=== PATIENT | female | born 1955 | race Caucasian/White ===

== ENCOUNTER 2021-12-12 11:17 | Outpatient (CLI) | payer MEDICARE, SELFPAY ==
--- NOTE | 2021-12-12 11:29 | MM_ITS ---
WS: [id number] BILATERAL SCREENING DIGITAL TOMOSYNTHESIS MAMMOGRAM WITH CAD HISTORY: SCREENING COMPARISON: 04/30/2018, 11/28/2016 Bilateral CC and MLO views with tomosynthesis and synthetic mammography submitted. Computer aided det ection analyzed. Breast composition: There are scattered areas of fibroglandular density. No suspicious masses, microc alcifications or architectural distortion. Bilateral scattered asymmetries are stable. MM/[place] [id number] IMPRESSION: BI-RADS: 2-Benign FOLLOW UP: 1 Year Follow-up
== END 2021-12-12 11:18 | disposition home or self-care (01) ==
LOC: RAD 11:19
PROVIDERS: PCP Family Medicine; Visit Provider Family Medicine
DX: Z12.31 Encounter for screening mammogram for malignant neoplasm of breast (principal)
CPT/HCPCS: 77063; 77067

== ENCOUNTER 2022-06-23 19:40 | Inpatient (IN) | payer MEDICARE, SELFPAY ==
[2022-06-23 19:42] VITALS: BP 134/79; PULSE 104; RESP 18; TEMP 37; O2SAT 99; BMI 33.0
--- NOTE | 2022-06-23 20:04 | CTR_ITS ---
PROCEDURE INFORMATION: Exam: CTA Chest With Contrast Exam date and time: 06/23/2022 9:06 PM Age: 67 years old Clinical indication: Fever and shortness of breath; Patient HX: SOB with fever. Positive home covid test. ; Additional info: Shortness of breath, recent covid diagnosis TECHNIQUE: Imaging protocol: Computed tomographic angiography of the chest with contrast. 3D rendering (Not supervised by radiologist): MIP and/or 3D reconstructed images were created by the technologist. Radiation optimization: All CT scans at this facility use at least one of these dose optimization techniques: automated exposure control; mA and/or kV adjustment per patient size (includes targeted exams where dose is matched to clinical indication); or iterative reconstruction. Contrast material: OMNI 350; Contrast volume: 82 ml; Contrast route: INTRAVENOUS (IV); Other protocol: This patient has received 0 known CTs and 0 known cardiac nuclear medicine studies in the 12 months prior to the current study. COMPARISON: No relevant prior studies available. RADIATION DOSE METRICS: Total DLP (mGy-cm): 405.61 FINDINGS: Pulmonary arteries: Normal. No pulmonary emboli. Aorta: Unremarkable. No aortic aneurysm. No aortic dissection. Lungs: Patchy bilateral right greater than left airspace infiltrates. Pleural spaces: Unremarkable. No pneumothorax. No pleural effusion. Heart: Unremarkable. No cardiomegaly. No pericardial effusion. Lymph nodes: Scattered prominent subcentimeter short axis mediastinal lymph nodes, nonspecific. Scattered prominent subcentimeter short axis mediastinal lymph nodes, nonspecific. 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 Soft tissues: Unremarkable. CT/CT angio chest PE protcl [id number] IMPRESSION: 1. Negative for pulmonary embolus. 2. Scattered prominent subcentimeter short axis mediastinal lymph nodes, nonspecific. 3. 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 4. Scattered prominent subcentimeter short axis mediastinal lymph nodes, nonspecific. 5. Patchy bilateral right greater than left airspace infiltrates.
--- NOTE | 2022-06-23 20:09 | W.ED.SOB ---
HPI - SOB/Dyspnea General: Chief Complaint: Shortness of Breath/Dyspnea Stated Complaint: SOB, Covid + Time Seen by Provider: 06/23/22 19:50 History of Present Illness: HPI Narrative: This 67-year-old female presents to the ER for evaluation of worsening shortness of breath. She was positive to home COVID test on 06/16/2022 (7 days ago). Since then, symptoms have persisted and now she has dizziness and vertigo that is so severe that she finds it hard to stand and walk. This has been going on for the last 4 to 5 days. Today, she started having off-and-on temperature with Tmax of 100.7. Also, she developed shortness of breath earlier this afternoon, prompting her to come in for evaluation. She continues to cough which gives her upper abdominal pain. Patient is hypoxic on room air and is currently on 2 L via nasal cannula to maintain her oxygen in the mid 90s. Associated symptoms: Reports fever(s) and lightheadedness Review of Systems Const: Reports: fever(s) and body aches Eyes: Denies: change in vision or eye discharge ENMT: Denies: throat pain, dental pain or nasal discharge Card: Reports: lightheadedness and other (Vertigo) Resp: Reports: dyspnea and non-productive cough : Denies: dysuria Musc: Denies: neck pain or back pain Psych: Denies: depression René/Lymph: Denies: easy bruising All/Imm: Denies: urticaria, tongue swelling or facial swelling Physical Exam Const: COMMON NORMALS: no acute distress, patient oriented x3, no limitations and alert HENMT: COMMON NORMALS: normocephalic HEAD & SCALP: normocephalic Eye: COMMON NORMALS: EOMs intact bilaterally Neck/C-Spine: COMMON NORMALS: full ROM and supple Chest: COMMONS NORMALS: normal inspection of the chest Resp: COMMON NORMALS: normal respiratory effort, No retractions, No use of accessory muscles and clear to auscultation bilaterally AUSCULTATION: clear to auscultation bilaterally OTHER: Currently on 2 L of oxygen via nasal cannula Cardio: COMMON NORMALS: regular rate, regular rhythm and No murmurs present (Cardio) RATE: regular rate RHYTHM: regular rhythm GI: COMMON NORMALS: Normal to inspection, nondistended, normoactive bowel sounds present and non-tender : COMMON NORMALS: Yes no CVA tenderness BLADDER/KIDNEY EXAM: Yes no CVA tenderness Back/Pelvis: COMMON NORMALS: no CVA tenderness and no thoracic nor lumbar tenderness Extremity: GENERAL: Yes normal exam except as noted Neuro: COMMON NORMALS: patient oriented x3 and no focal motor deficits SENSORIUM/ORIENTATION: Yes alert Psych: COMMON NORMALS: mental status grossly normal and cooperative Course Vital Signs: Vital signs: Vital Signs Temperature 98.6 F 06/23/22 19:42 Pulse Rate 104 H 06/23/22 19:42 Respiratory Rate 18 06/23/22 19:42 Blood Pressure 134/79 06/23/22 19:42 Pulse Oximetry 99 06/23/22 19:42 Oxygen Delivery Me thod 06/23/22 19:42 Oxygen Flow Rate 2 06/23/22 19:42 MDM - SOB/Dyspnea Medical Decision Making Medical decision making: This 67-year-old female with a history of COVID-19 infection presents to the ER with shortness of breath, hypoxia, dizziness and vertigo. On room air, oxygen saturation dropped to 86 to 88%. Patient was put on 2 L to maintain her oxygen saturation in the mid 90s. With concerns for pulmonary embolism, CTA chest was obtained. It is negative for PE but reveals bibasilar infiltrates. Given that she is needing oxygen, she will be admitted for further management. Case discussed with hospitalist on-call who accepted patient for admission. Lab Data 06/23/22 20:24 06/23/22 20:24 Labs/Radiology: Radiology Impressions Chest CTA 06/23/22 20:04 IMPRESSION: 1. Negative for pulmonary embolus. 2. Scattered prominent subcentimeter short axis mediastinal lymph nodes, nonspecific. 3. 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 4. Scattered prominent subcentimeter short axis mediastinal lymph nodes, nonspecific. 5. Patchy bilateral right greater than left airspace infiltrates. Laboratory Results WBC 5.6 10^3/uL (4.0-10.0) 06/23/22 20:24 RBC 4.99 10^6/uL (4.1-5.3) 06/23/22 20:24 Hgb 15.0 g/dL (11.5-15.3) 06/23/22 20:24 Hct 45.7 % (37.0-47.0) 06/23/22 20: MCV 91.6 fl (81-99) 06/23/22: MCH 30.1 pg (28.0-34.0) 06/23/22: MCHC 32.8 g/dL (30.0-36.0) 06/23/22: RDW 13.1 % (12.1-15.1) 06/23/22: Plt Count 147 10^3/cmm (130-400) 06/23/22: MPV 10.6 fL (7.4-10.4) H 06/23/22: Neut % (Auto) 76.9 % 06/23/22: Lymph % (Auto) 16.7 % 06/23/22: Valley % (Auto) 4.7 % 06/23/22: Eos % (Auto) 1.3 % 06/23/22: Baso % (Auto) 0.2 % 06/23/22: Neut # (Auto) 4.28 10^3/uL (1.8-7.7) 06/23/22: Lymph # (Auto) 0.9 10^3/uL (0.8-4.8) 06/23/22: Valley # (Auto) 0.3 10^3/uL (0.2-0.9) 06/23/22: Eos # (Auto) 0.1 10^3/uL (0.0-0.8) 06/23/22: Baso # (Auto) 0.0 10^3/uL (0.0-0.1) 06/23/22: Nucleated RBC % (auto) 0 % 06/23/22: Nucleated RBCs # 0.0 /100WBC 06/23/22 20: Sodium 139 mmol/L (136-145) 06/23/22 20: Potassium 4.3 mmol/L (3.5-5.1) 06/23/22 20: Chloride 104 mmol/L (98-107) 06/23/22: Carbon Dioxide 23 mmol/L (22-29) 02/20/23 20:24 Anion Gap 16.3 (5-19) 06/23/22 20:24 BUN 11 mg/dL (8-23) 06/23/22 20:24 Creatinine 0.7 mg/dL (0.5-0.9) 06/23/22 20:24 GFR Calculation 83.2 mL/min (90-130) L 06/23/22 20:24 Glucose 147 mg/dL (65-115) H 06/23/22 20:24 Calculated Osmolality 290 mOsm/kg (285-295) 06/23/22 20:24 Calcium 8.8 mg/dL (8.5-10.5) 06/23/22 20:24 Total Bilirubin 0.3 mg/dL (0.15-1.2) 06/23/22 20:24 AST 26 U/L (0-32) 06/23/22 20:24 ALT 13 U/L (0-33) 06/23/22 20:24 Alkaline Phosphatase 96 U/L (35-105) 06/23/22 20:24 Troponin T Gen 5 ng/L 7 ng/L (0-10) 06/23/22 20:24 Total Protein 6.3 g/dL (6.6-8.7) L 06/23/22 20:24 Albumin 3.7 g/dL (3.5-5.2) 06/23/22 20:24 Globulin 2.6 g/dL (1.3-4.6) 06/23/22 20:24 Discharge Plan Discharge Condition: Stable Referrals: Matias Russell MD [Primary Care Provider] - Coding Level of Care Code ED Director Of Staff Development for Kiang Radha
[2022-06-23 20:39] LABS: Basophils % 0.2 %; Eosinophils # 0.1 10^3/uL (0.0-0.8); Eosinophils % 1.3 %; Hematocrit 45.7 % (37.0-47.0); Lymphocytes # 0.9 10^3/uL (0.8-4.8); Lymphocytes % 16.7 %; Mean Corpuscular HGB Conc 32.8 g/dL (30.0-36.0); Mean Corpuscular Hemoglobin 30.1 pg (28.0-34.0); Mean Corpuscular Volume 91.6 fl (81-99); Mean Platelet Volume 10.6 fL (7.4-10.4); Monocytes # 0.3 10^3/uL (0.2-0.9); Monocytes % 4.7 %; Neutrophils # 4.28 10^3/uL (1.8-7.7); Neutrophils % 76.9 %; Nucleated Red Blood Cells % 0 %; Platelet Count 147 10^3/cmm (130-400); Red Blood Count 4.99 10^6/uL (4.1-5.3); Red Cell Distribution Width 13.1 % (12.1-15.1); White Blood Count 5.6 10^3/uL (4.0-10.0)
[2022-06-23 20:51] LABS: Troponin T (5th) Once 7 ng/L (0-10)
[2022-06-23 20:53] LABS: Alanine Aminotransferase 13 U/L (0-33); Albumin Level 3.7 g/dL (3.5-5.2); Alkaline Phosphatase 96 U/L (35-105); Aspartate Amino Transferase 26 U/L (0-32); Blood Urea Nitrogen 11 mg/dL (8-23); Calcium 8.8 mg/dL (8.5-10.5); Carbon Dioxide 23 mmol/L (22-29); Chloride 104 mmol/L (98-107); Globulin 2.6 g/dL (1.3-4.6); Glomerular Filtration Rate 83.2 mL/min (90-130); Glucose 147 mg/dL (65-115); Osmolality Calculated 290 mOsm/kg (285-295); Sodium 139 mmol/L (136-145); Total Bilirubin 0.3 mg/dL (0.15-1.2); Total Protein 6.3 g/dL (6.6-8.7)
[2022-06-23 21:07] LABS: Anion Gap 16.3 (5-19); Potassium 4.3 mmol/L (3.5-5.1)
[2022-06-23] MEDS: meclizine 25 mg tablet 50 MG PO (23:13)
[2022-06-23] MEDS: dexamethasone 10 mg/mL INJ 6 MG IVP (23:14)
[2022-06-23] MEDS: levofloxacin-dextrose 5 % 750 MG/150 ML PREMIX 100 MG IV (23:19)
[2022-06-23 23:31] VITALS: BP 130/73; PULSE 84; RESP 16; O2SAT 2
[2022-06-23] MEDS: sodium chloride 0.9% 1,000 ML 75 ML IV (23:55)
[2022-06-24] VITALS (15 sets, daily range): BP systolic 103–136; BP diastolic 68–85; PULSE 72–115; RESP 12–18; TEMP 36.7–37.2; O2SAT 93–98
[2022-06-24 00:03] LABS: NT Pro B Type Natriuretic Pept 79 pg/mL (0-125); Procalcitonin 0.02 ng/mL (0-0.5); Thyroid Stimulating Hormone 2.71 uIU/mL (0.27-4.20); Vitamin B12 301 pg/mL (232-1245)
[2022-06-24 00:10] LABS: Folate Level 10.2 ng/mL (4.8-37.3)
[2022-06-24 00:14] LABS: Iron 51 ug/dL (37-145)
--- NOTE | 2022-06-24 00:17 | P.HP_ITS ---
Providers/Chief Complaint Primary Care Provider: Matias Russell Chief Complaint: SOB, Covid + History of Present Illness Michelle Fuentes is a 67 year old female with no significant past medical history who tested positive at home for COVID-19 a week ago. As per the patient she has been having symptoms of nausea, myalgias, weakness, cough, slight difficulty in breathing for last 8 to 9 days. Even at home has COVID. Shortness of breath have been getting worse over. Of last 3 days hence she decided to come to the ER today. Symptoms are all associated with dizziness on standing up. Complains of multiple episodes of diarrhea, poor oral intake. In the ER found to be hypoxic down to mid 80s improving to more than 92 on 2 L oxygen supplementation. On examination patient is lying comfortably in bed with family at bedside without any active complaints currently. In the ER has been given IV Levaquin and started on oxygen therapy. Review of Systems General: Reports: 10 or more systems reviewed and unremarkable except in HPI and below Const: Denies: fever(s), chills, body aches, change in appetite, change in weight, malaise, night sweats, diaphoresis, change in sleep pattern, daytime sleepiness or snoring Eyes: Denies: change in vision, blurry vision, photophobia, eye discomfort or eye discharge ENMT: Denies: throat pain, enlarged tonsils, hoarseness, mouth pain, oral sores, dry mouth, tinnitus, nasal congestion or post nasal drip Card: Denies: chest pain, palpitations, irregular heart rhythm, edema, swellin g of feet/ankles, lightheadedness, syncope, pre-syncope, dyspnea on exertion, orthopnea, leg pain with exertion or acrocyanosis Resp: Denies: dyspnea, productive cough, non-productive cough, wheezing, stridor, pain on inspiration, change in phlegm color, hemoptysis or chest congestion GI: Denies: abdominal pain, nausea, vomiting, hematemesis, coffee ground emesis, dysphagia, heartburn, diarrhea, constipation, bloating, GI cramping, change in bowel habits, pain on defecation, hematochezia or melena : Denies: flank pain, dysuria, urinary frequency, urinary urgency, urinary hesitancy, nocturia or hematuria Musc: Denies: neck pain, back pain, extremity pain, joint pain, joint swelling, joint redness, joint stiffness or limited range of motion Neuro: Denies: headache(s), numbness in extremities, weakness in extremities, sensory changes, lack of coordination, difficulty walking, frequent falls, dizziness, vertigo, confusion, Slurred speech present, difficulty communicating thoughts or seizure-like activity Psych: Denies: anxiety, depression, mood swings, panic attacks, hopelessness or irritability Endo: Denies: polyuria, polydipsia, tired all the time, cold intolerance, excessive sweating, flushing or heat intolerance René/Lymph: Denies: easy bruising or easy bleeding All/Imm: Denies: tongue swelling, facial swelling or acute wheezing Medications/Allergies Allergies Allergy/AdvReac Type Severity Reaction Status Date / Time benzonatate Allergy Mild ADR-Anxiety Verified 06/24/22 00:17 tramadol Allergy ADR-Dizzine Verified 06/23/22 19:49 ss PFSH Acute PFSH: Medical History (Updated 06/24/22 @ 00:26 by Bakari Abdullahi MD) Skin cancer Surgical History (Updated 06/24/22 @ 00:26 by Bakari Abdullahi MD) History of colonoscopy Hx of cholecystectomy Family History (Updated 06/24/22 @ 00:26 by Bakari Abdullahi MD) Other Diabetes Denies family history of Clotting disorder Social History (Updated 06/24/22 @ 00:26 by Bakari Abdullahi MD) Smoking and tobacco status: never smoked Alcohol intake: never Substance/Drug Use: never Caregiver/support person: Yes Lives independently: Yes Household members: spouse Housing: House Marital status: Vitals/I&O/Wt Last Vital Signs Temp 98.6 F 06/23/22 19:42 Pulse 84 06/23/22 23:31 Resp 16 06/23/22 23:31 BP 130/73 06/23/22 23:31 Pulse Ox 2 L 06/23/22 23:31 O2 Del Method 06/23/22 23:31 O2 Flow Rate 2 06/23/22 19:42 Weight last 48 hrs Weight 79.379 kg Physical Exam Narrative: General: No acute distress, AO x3 on 2 to 3 L of oxygen supplementation HEENT: PERRLA, pupils bilaterally equal and reactive Chest: Normal vesicular breath sounds,, occasional rhonchi all over the lung cabrera with coarse crackles present in right mid and lower zone CVS: S1-S2 regular, no murmurs, no tachycardia, no gallops, no rubs Abdomen: Soft, nontender, no organomegaly, bowel sounds present Neuro: No focal deficits, no facial deformity, AO x3, power 5/5 in all limbs Data 06/23/22 20:24 06/23/22 20:24 Micro: Microbiology 06/23/22 23:14 Blood Culture - Preliminary Blood SPECIMEN COLLECTED 06/23/22 23:16 Blood Culture - Preliminary Blood SPECIMEN COLLECTED A&P Assessment and plan (1) Hypoxia: (2) Pneumonia due to COVID-19 virus: (3) Dizziness: (4) Diarrhea: Plan 67-year-old female with no significant past medical history who tested positive at home for COVID-19 around a week ago presented to the ER because of vertigo, difficulty in breathing, hypoxia which has been getting worse for last 2 to 3 days along with diarrhea and poor oral intake. Hypoxia secondary to COVID-19 pneumonia: Mild to moderate disease. High concerns for superimposed bacterial infection Oxygen supplementation keeping saturation over 88%. Dexamethasone 6 mg daily. Remdesivir to finish a 5-day course. Vitamin C, zinc. DuoNeb every 6 hour, budesonide twice daily Pulmonary toilet with incentive spirometry flutter valve. We will monitor inflammatory markers including CRP, D-dimer every 48 hours. If getting elevated will dose Actemra. Patient was made aware of the same and he has given verbal consent. CT done in ER negative for pulmonary embolism. Check sputum culture, MRSA swab, procalcitonin, urine Legionella, bacterial antigen, blood culture. For now start patient on antibiotics for community-acquired pneumonia with IV ceftriaxone and oral azithromycin. If MRSA swab is positive or if patient is not improving can add vancomycin. Given hypoxia will try to keep patient as negative as possible. Currently patient is slightly dehydrated. Start on normal saline at 75 cc/h while monitoring for fluid overload. Strict input output charting, daily weights. Diarrhea: Check stool studies. Most likely in setting of viral illness. IV fluid as above. If if negative can add loperamide. Dizziness: Most likely in setting of dehydration along with viral prodrome in setting of COVID-19 and diarrhea. IV fluids as above. Meclizine 25 mg every 8 as needed. Full code. Patient's granddaughter will be the DPOA. Lovenox for DVT prophylaxis Protonix for PUD prophylaxis Regular diet Attestations Medical Necessity Statement*: Admission for more than 2 midnights for management of hypoxia in setting of COVID-19 with high concern for superimposed bacterial infection, diarrhea and dizziness secondary to dehydration and Moderate Time for a total of 60 minutes, includes reviewing past or interval history, examining/interviewing patient, placing orders, counseling patient/family/other support, updating patient/family/other support, discussing plan of care with staff, communicating with other healthcare providers, documenting encounter and coordinating care Diagnoses Hypoxia R09.02 Pneumonia due to COVID-19 virus U07.1; J12.82 Dizziness R42 Diarrhea R19.7
[2022-06-24 00:44] LABS: Percent Saturation 16.3 % (20-50); Total Iron Binding Capacity 312 mcg/dl; Unsaturated Iron Binding 261 ug/dL (112-347)
[2022-06-24 00:49] LABS: Erythrocyte Sedimentation Rate 32 mm/hr (0-15)
[2022-06-24 01:01] LABS: Lactic Sepsis W/Reflex 1.8 mmol/L (0.5-2.2)
[2022-06-24 01:26] LABS: D Dimer 1.01 ug/mIFEU (0-0.59)
[2022-06-24] MEDS: remdesivir 200 MG in sodium chloride 0.9% (100 ml) 60 ML 100 MG IV (01:35)
--- NOTE | 2022-06-24 02:46 | PC.PHAR ---
Pharmacokinetic dosing service Date: 06/24/22 Time: 245 Objective: Patient: Michelle Fuentes Floor: 259-1 Age: 67 yo Serum creatinine: 0.7 mg/dL Height: 61.0 Inches Weight (kg): 79.379 Diagnosis: Relevant medical/social history: Cultures and sensitivities: Other labs: Assessment: IBW (kg): 47.80 Dosing wt(kg): 79.379 Estimated Creatinine clearance (ml/min): 58.0 CRCL method: Cockcroft and Gault using ibw(default). Drug selected: Vancomycin Loading dose (mg): 0 Vd (liters): 71.4 (factor used: 0.9 L/kg) Rajesh (hr-1): 0.053 Half life (hrs): 13.08 Recommended dose: 1500 mg Interval: 18 hrs Infusion time (hrs): 1.5 Predicted peak (mcg/mL): 32.8 Predicted trough (mcg/mL): 13.68 Total body weight is being used for vancomycin dosing. Renal function is stable [ ] /unstable [ ] Recommendations: Give Vancomycin 1500 mg q 18 hrs with an expected Cpeak of 32.8 mcg/ml and an expected Ctrough of 13.68 mcg/ml Renal dosing of other antibiotics (review renal dosing of other medications and list guidelines here): Thank you for the consult, will continue to follow. Signature: Carlie Olivarez [facility]
[2022-06-24] MEDS: vancomycin 1,500 MG/300 ML PIGGYBACK 150 MG IV (03:03)
[2022-06-24] MEDS: ascorbic acid 500 mg Tablet PO ×3 (03:03→17:18)
[2022-06-24] MEDS: enoxaparin 40 mg/0.4 mL Syringe SUBCUT (03:03)
[2022-06-24 05:07] LABS: Add Urine Microscopic? NO; Charge for UA Resulting for Rev
[2022-06-24 05:09] LABS: Specific Gravity, Urine 1.005 (1.005-1.030); Urine Appearance Clear (CLEAR); Urine Color Yellow (Yellow); pH Urine 5 (5-7)
[2022-06-24 05:10] LABS: Bilirubin Urine Neg (Negative); Blood Urine Neg (Negative); Glucose Urine UA Norm (Normal); Ketones Urine Negative (Negative); Leukocyte Esterase Urine Negative (Negative); Nitrate Urine Negative (Negative); Protein Urine Neg (Negative); Urobilinogen Urine Norm (Negative)
[2022-06-24 05:25] LABS: Hematocrit 41.8 % (37.0-47.0); Hemoglobin 13.7 g/dL (11.5-15.3); Lymphocytes # 0.8 10^3/uL (0.8-4.8); Lymphocytes % 18.1 %; Mean Corpuscular HGB Conc 32.8 g/dL (30.0-36.0); Mean Corpuscular Hemoglobin 29.8 pg (28.0-34.0); Mean Corpuscular Volume 90.9 fl (81-99); Mean Platelet Volume 10.8 fL (7.4-10.4); Monocytes # 0.1 10^3/uL (0.2-0.9); Monocytes % 2.2 %; Neutrophils # 3.55 10^3/uL (1.8-7.7); Neutrophils % 79.3 %; Nucleated Red Blood Cells % 0 %; Platelet Count 145 10^3/cmm (130-400); White Blood Count 4.5 10^3/uL (4.0-10.0)
[2022-06-24] MEDS: piperacillin-tazobactam 3.375 GM in sodium chloride 0.9% (plus) 50 ML IV ×3 (05:35→22:21)
[2022-06-24 05:40] LABS: D Dimer 1.47 ug/mIFEU (0-0.59)
[2022-06-24 05:54] LABS: Alanine Aminotransferase 13 U/L (0-33); Albumin Level 3.2 g/dL (3.5-5.2); Alkaline Phosphatase 86 U/L (35-105); Blood Urea Nitrogen 15 mg/dL (8-23); C Reactive Protein 26.5 mg/L (0.0-4.9); Calcium 8.7 mg/dL (8.5-10.5); Carbon Dioxide 19 mmol/L (22-29); Chloride 106 mmol/L (98-107); Chol HDL Ratio 2.11 mg/dL (0.0-4.40); Cholesterol 97 mg/dL (0-200); Globulin 3.5 g/dL (1.3-4.6); Glomerular Filtration Rate 83.2 mL/min (90-130); Glucose 195 mg/dL (65-115); HDL Cholesterol 46 mg/dL (60-100); LDL Cholesterol Calculated 39 mg/dL (50-129); Osmolality Calculated 288 mOsm/kg (285-295); Sodium 136 mmol/L (136-145); Total Bilirubin 0.2 mg/dL (0.15-1.2); Total Protein 6.7 g/dL (6.6-8.7); Triglycerides 58 mg/dL (0-150); VLDL Cholestrol Calculation 12 mg/dL (0-30)
[2022-06-24 05:55] LABS: Anion Gap 15.8 (5-19)
[2022-06-24 05:56] LABS: Aspartate Amino Transferase 28 U/L (0-32); Potassium 4.8 mmol/L (3.5-5.1)
--- NOTE | 2022-06-24 06:00 | XRR_ITS ---
PROCEDURE INFORMATION: Exam: XR Chest Exam date and time: 06/24/2022 6:10 AM Age: 67 years old Clinical indication: Condition or disease; Other: Covid TECHNIQUE: Imaging protocol: Radiologic exam of the chest. Views: 1 view. COMPARISON: CT angio chest PE protcl [id number] 06/23/2022 9:06 PM FINDINGS: Lungs: Low lung volumes. There is increased interstitial markings and haziness of the lungs, which in the setting of cardiomegaly is suggestive of pulmonary congestion. Pneumonia should be excluded clinically. Pleural spaces: Unremarkable. No pleural effusion. No pneumothorax. Heart/Mediastinum: Stable cardiomediastinal silhouette. Bones/joints: Unremarkable. XR/XR chest 1V portable [id number] IMPRESSION: Imaging findings suggestive of pulmonary congestion. Pneumonia should be excluded clinically.
[2022-06-24 06:05] LABS: Estmated Average Glucose 103; Hemoglobin A1C 5.2 % (4.0-6.0)
[2022-06-24] MEDS: budesonide 0.5 mg/2 mL Neb INHALATION (08:55)
[2022-06-24] MEDS: albuterol 2.5 mg/3 mL Neb INHALATION ×2 (08:58→14:10)
[2022-06-24] MEDS: ipratropium 0.5 mg/2.5 mL Neb INHALATION ×2 (08:58→14:10)
[2022-06-24] MEDS: ferrous gluconate 324 mg Tablet PO ×2 (09:43→17:18)
[2022-06-24] MEDS: pantoprazole DR 40 mg Tablet PO (09:43)
[2022-06-24] MEDS: cyanocobalamin 1,000 mcg Tablet 500 MCG PO (09:43)
[2022-06-24] MEDS: zinc gluconate 50 mg Tablet PO (09:43)
[2022-06-24] MEDS: acetaminophen 325 mg Tablet 650 MG PO (11:13)
--- NOTE | 2022-06-24 12:28 | P.PN_ITS ---
Subjective Subjective: Patient is doing well on 2 L Complaining of fatigue lethargy and vertigo We will discontinue isolation by tomorrow as her symptoms started on 15 June Vitals/I&O/Wt Last Vital Signs Temp 98.2 F 06/24/22 11:35 Pulse 115 H 06/24/22 11:35 Resp 18 06/24/22 11:35 BP 125/85 06/24/22 11:35 Pulse Ox 98 06/24/22 11:35 O2 Del Method 06/24/22 11:35 O2 Flow Rate 1 06/24/22 11:35 06/23/22 06/24/22 06/24/22 22:59 06:59 14:59 Intake Total 1025 / 1025 170 / 170 Output Total 500 / 500 Balance 525 / 525 170 / 170 Weight last 48 hrs Weight 82.146 kg Weight 79.379 kg Physical Exam Narrative: Awake and alert Fatigued and lethargic Pleasant and cooperative Nonfocal neuro exam S1, S2 No audible stridor or wheezing Currently on 2 L Abdomen soft Able to follow commands Family at the bedside Data 06/24/22 05:07 06/24/22 05:07 Micro: Microbiology 06/23/22 23:14 Blood Culture - Preliminary Blood SPECIMEN COLLECTED 06/23/22 23:16 Blood Culture - Preliminary Blood SPECIMEN COLLECTED A&P Assessment and plan (1) Diarrhea: (2) Dizziness: (3) Hypoxia: (4) COVID-19 virus infection: (5) Pneumonia due to COVID-19 virus: Plan Concern for superimposed bacterial infection with underlying COVID-19 infection Currently she is on 2 L Acute hypoxia on 2 L Complaining of vertigo Orthostatic as well Continue IV fluids and antibiotics We will discontinue isolation by tomorrow as she will be finishing 10 days of her symptoms is also sick with COVID-19 but not severely sick Continue Decadron and remdesivir Granddaughter is her DPOA DVT prophylaxis on board Full code Attestations Medical Necessity Statement*: Continue medical management and Moderate Time (35) for a total of 35 minutes, includes reviewing past or interval history, examining/interviewing patient, placing orders, counseling patient/family/other support, updating patient/family/other support, discussing plan of care with staff, communicating with other healthcare providers, documenting encounter and coordinating care Diagnoses Diarrhea R19.7 Dizziness R42 Hypoxia R09.02 COVID-19 virus infection U07.1 Pneumonia due to COVID-19 virus U07.1; J12.82
--- NOTE | 2022-06-24 14:41 | ECG_ITS ---
[facility] Test Date: 2022-06-24 Pat Name: Michelle Fuentes Department: Room: 257 Gender: Female Permit Technician: : 1955 Requested By: Leyla Lyons Order Number: [id number] Star MD: Jason Handy M.D. Measurements Intervals [place] Rate: 110 P: 12 FL: 138 QRS: 30 QRSD: 97 T: -20 QT: 301 QTc: 408 Interpretive Statements SINUS TACHYCARDIA INCOMPLETE RIGHT BUNDLE BRANCH BLOCK [90+ ms QRS DURATION, TERMINAL R IN V1/V2, 40+ ms S IN I/aVL/V4/V5/V6] MINIMAL VOLTAGE CRITERIA FOR LVH, CONSIDER NORMAL VARIANT [MEETS CRITERIA IN ONE OF: R(aVL), S(V1), R(V5), R(V5/V6)+S(V1)] ST DEVIATION AND MODERATE T-WAVE ABNORMALITY, CONSIDER ANTERIOR ISCHEMIA [-0.1+ mV T-WAVE IN V3/V4] Compared to ECG 06/24/2022 14:45:01 No significant changes Electronically Signed On 06-24-2022 17:33:07 ORTHOTIST OR PROSTHETIST by Jason Handy M.D. [id number]
--- NOTE | 2022-06-24 14:45 | ECG_ITS ---
[facility] Test Date: 2022-06-24 Pat Name: Michelle Fuentes Department: Room: 259 Gender: Female It Application Architect: : 1955 Requested By: Leyla Lyons Order Number: [id number] Star MD: Jason Handy M.D. Measurements Intervals [place] Rate: 125 P: 20 [place]: 166 QRS: 16 QRSD: 91 T: -27 QT: 288 QTc: 416 Interpretive Statements SINUS TACHYCARDIA INCOMPLETE RIGHT BUNDLE BRANCH BLOCK [90+ ms QRS DURATION, TERMINAL R IN V1/V2, 40+ ms S IN I/aVL/V4/V5/V6] MODERATE VOLTAGE CRITERIA FOR LVH, CONSIDER NORMAL VARIANT [MEETS CRITERIA IN ONE OF: R(aVL), S(V1), R(V5), R(V5/V6)+S(V1)] ST DEVIATION AND MODERATE T-WAVE ABNORMALITY, CONSIDER ANTEROLATERAL ISCHEMIA [-0.1+ mV T-WAVE IN V3-V6] ST DEVIATION AND MODERATE T-WAVE ABNORMALITY, CONSIDER INFERIOR ISCHEMIA [-0.1+ mV T-WAVE IN II/aVF] No previous ECG available for comparison Electronically Signed On 06-24-2022 17:33:34 ORACLE TECHNICAL ARCHITECT by Jason Handy M.D. [id number]
[2022-06-24] MEDS: dilTIAZem 5 mg/mL SDV 5 mL IVP (14:48)
[2022-06-24] MEDS: morphine 4 mg/mL SDV 1 mL 2 MG IVP (14:49)
--- NOTE | 2022-06-24 15:14 | W.PM.EVENTAC ---
Event Notes Attestations Time Spent in Patient Care: Patient started experiencing tachycardia and chest pain, CTA has not shown any PE Requested EKG which showed ST depressions V4 to V6 however it is also showing incomplete right bundle branch block Chest pain improved after she was given Cardizem 5 mg IV push which improved her sinus tachycardia I have requested serial troponin and EKGs It is very hard to get blood drawn from her veins will request midline I will start her on therapeutic Lovenox Request stress test for the morning
[2022-06-24] MEDS: enoxaparin 80 mg/0.8 mL Syringe SUBCUT (15:44)
--- NOTE | 2022-06-24 16:41 | ECG_ITS ---
[facility] Test Date: 2022-06-24 Pat Name: Michelle Fuentes Department: Room: 257 Gender: Female Power Shovel Operator Helper: : 1955 Requested By: Leyla Lyons Order Number: [id number] Star MD: Jason Handy M.D. Measurements Intervals [place] Rate: 98 P: 5 TX: 152 QRS: 32 QRSD: 92 T: -12 QT: 376 QTc: 481 Interpretive Statements SINUS RHYTHM POSSIBLE RIGHT VENTRICULAR CONDUCTION DELAY [RSR (QR) IN V1/V2] ST DEVIATION AND MODERATE T-WAVE ABNORMALITY, CONSIDER ANTERIOR ISCHEMIA [-0.1+ mV T-WAVE IN V3/V4] Compared to ECG 06/24/2022 15:09:23 Sinus tachycardia no longer present Incomplete right bundle-branch block no longer present T-wave abnormality still present Possible ischemia still present Electronically Signed On 06-24-2022 17:39:02 BUMP GRADER OPERATOR by Jason Handy M.D. [id number]
--- NOTE | 2022-06-24 19:01 | USCV_ITS ---
Gina Michelle Age: 67 Gender: F : 1955 Exam Date: 06/24/2022 21:46 Ordering Phys: Leyla Lyons MD Technologist: COLE Exam Location: [facility] [place] Indication: COVID isolation. hypoxia 86-88% on room air, dizziness. SOB. No history of cardiac intervention per patient. BP: 136 / 83 HR: 86 Rhythm: Sinus Technical Quality: Adequate MEASUREMENTS (Male / Female) Normal Values 2D ECHO LV Diastolic Diameter PLAX 2.4 cm 4.2 - 5.9 / 3.9 - 5.3 cm LV Systolic Diameter PLAX 1.6 cm IVS Diastolic Thickness 1.8 cm 0.6 - 1.0 / 0.6 - 0.9 cm IVS Systolic Thickness 2.4 cm LVPW Diastolic Thickness 1.5 cm 0.6 - 1.0 / 0.6 - 0.9 cm LVPW Systolic Thickness 1.3 cm LVOT Diameter 2.0 cm LV Ejection Fraction 2D Teich 61.5 % LV Ejection Fraction MOD 2C 53.7 % LV Ejection Fraction 2C AL 55.5 % LA Diameter 1.6 cm LA Width 3.5 cm LA Height 5.1 cm RA Width 2.6 cm RA Height 4.1 cm Aorta at Sinotubular Diameter 2.9 cm IVC Diameter 1.5 cm M-MODE Aortic Annulus Diameter 2.9 cm LA Ao Ratio MM 0.5 MV E Point Septal Separation 0.4 cm DOPPLER AV Peak Velocity 115.0 cm/s LVOT Peak Velocity 96.0 cm/s AV Area Cont Eq vti 2.8 cm squared AV Area Cont Eq pk 2.5 cm squared MV Area PHT 5.0 cm squared Mitral E to A Ratio 0.7 MV E' Velocity 34.5 cm/s Mitral E to MV E' Ratio 13.3 Mitral E to LV E' Lateral Ratio 13.0 Mitral E to LV E' Septal Ratio 13.9 TR Peak Velocity 237.7 cm/s TR Peak Gradient 22.6 mmHg TV Peak E Velocity 46.0 cm/s Right Atrial Pressure 5.0 mmHg Pulmonary Artery Systolic Pressu 27.6 mmHg PV Peak Velocity 104.0 cm/s RV Acceleration Time 0.1 s RV Ejection Time 0.4 s RV AcT/ET 0.2 FINDINGS Left Ventricle Left ventricle is normal in size. LV systolic function is normal with EF of 55 to 60%. No regional wall motion abnormalities are seen. Grade 1 diastolic dysfunction Right Ventricle Normal in size and function Right Atrium Normal in size Left Atrium Normal in size Mitral Valve Structurally normal mitral valve. Aortic Valve Structurally normal aortic valve.No significant aortic stenosis. Moderate aortic regurgitation. Tricuspid Valve Mild tricuspid regurgitation. Pulmonary artery systolic pressure is normal. Pulmonic Valve Not well-visualized. Mild pulmonic regurgitation Pericardium Normal Aorta Normal in size IVC Appears to be normal CONCLUSIONS LV systolic function is normal with EF of 55 to 60% Grade 1 diastolic dysfunction Moderate aortic regurgitation. Mild tricuspid regurgitation Mild pulmonic regurgitation No comparison studies are available Jason Handy MD (Electronically Signed) Final Date: 25 June 2022 10:52 S
[2022-06-24 22:11] LABS: Troponin(5th) Baseline 15 ng/L (0-10)
[2022-06-24] MEDS: sodium chloride 0.9% 1,000 ML 75 ML IV (22:22)
[2022-06-25] VITALS (11 sets, daily range): BP systolic 106–123; BP diastolic 70–80; PULSE 67–95; RESP 16–18; TEMP 36.8–36.9; O2SAT 93–97
[2022-06-25 00:13] LABS: Troponin 5 2HR 16.04 ng/L (0-10)
[2022-06-25 00:23] LABS: Troponin 5 2HR Delta 1.04 ABS# (0-10)
[2022-06-25] MEDS: vancomycin 1,500 MG/300 ML PIGGYBACK 150 MG IV (00:54)
[2022-06-25] MEDS: enoxaparin 80 mg/0.8 mL Syringe SUBCUT ×2 (02:54→15:20)
--- NOTE | 2022-06-25 03:32 | ECG_ITS ---
[facility] Test Date: 2022-06-25 Pat Name: Michelle Fuentes Department: Room: 257 Gender: Female Frame Maker: : 1955 Requested By: Bakari Abdullahi Order Number: [id number] Star MD: Jason Handy M.D. Measurements Intervals [place] Rate: 73 P: 9 UT: 162 QRS: 34 QRSD: 93 T: 24 QT: 402 QTc: 443 Interpretive Statements SINUS RHYTHM POSSIBLE RIGHT VENTRICULAR CONDUCTION DELAY [RSR (QR) IN V1/V2] MODERATE T-WAVE ABNORMALITY, CONSIDER ANTERIOR ISCHEMIA [-0.1+ mV T-WAVE IN V3/V4] Compared to ECG 06/24/2022 17:12:40 No significant changes Electronically Signed On 06-25-2022 10:29:06 HOUSING INSTALLER by Jason Handy M.D. [id number]
[2022-06-25 05:01] LABS: Hematocrit 34.4 % (37.0-47.0); Hemoglobin 11.2 g/dL (11.5-15.3); Lymphocytes # 0.8 10^3/uL (0.8-4.8); Lymphocytes % 15.1 %; Mean Corpuscular HGB Conc 32.6 g/dL (30.0-36.0); Mean Corpuscular Hemoglobin 29.7 pg (28.0-34.0); Mean Corpuscular Volume 91.2 fl (81-99); Mean Platelet Volume 10.8 fL (7.4-10.4); Monocytes # 0.4 10^3/uL (0.2-0.9); Neutrophils % 77.5 %; Nucleated Red Blood Cells % 0 %; Platelet Count 159 10^3/cmm (130-400); Red Blood Count 3.77 10^6/uL (4.1-5.3); Red Cell Distribution Width 13.4 % (12.1-15.1); White Blood Count 5.3 10^3/uL (4.0-10.0)
[2022-06-25] MEDS: piperacillin-tazobactam 3.375 GM in sodium chloride 0.9% (plus) 50 ML IV (05:33)
[2022-06-25] MEDS: remdesivir 100 MG in sodium chloride 0.9% (100 ml) 100 ML IV (05:34)
[2022-06-25 05:42] LABS: Troponin 5 6HR 12.52 ng/L (0-10)
[2022-06-25 05:43] LABS: Troponin 5 6HR Delta -2.48 ng/L (0-12)
[2022-06-25 05:45] LABS: Anion Gap 13.7 (5-19); Blood Urea Nitrogen 20 mg/dL (8-23); Calcium 8.4 mg/dL (8.5-10.5); Carbon Dioxide 19 mmol/L (22-29); Chloride 111 mmol/L (98-107); Glomerular Filtration Rate 83.2 mL/min (90-130); Glucose 145 mg/dL (65-115); Magnesium 1.9 mg/dL (1.7-2.3); Osmolality Calculated 293 mOsm/kg (285-295); Potassium 4.7 mmol/L (3.5-5.1); Sodium 139 mmol/L (136-145)
--- NOTE | 2022-06-25 09:00 | ECG_ITS ---
[facility] Test Date: 2022-06-25 Pat Name: Michelle Fuentes Department: Room: 257 Gender: Female Senior Accounting Clerk: La Maurice : 1955 Requested By: Leyla Lyons Order Number: [id number] Star MD: Jason Handy M.D. Interpretive Statements NAME OF STUDY: LEXISCAN SESTAMIBI STRESS TEST INDICATION: [Chest Pain, ] Procedure: At the baseline, the blood pressure was 120/74 mmHg with a heart rate of 88 bpm. The electrocardiogram showed normal sinus rhythm, normal axis with normal ST and T's. The Lexiscan was infused over a period of 20 seconds. A total of 0.4 mg of Lexiscan was infused. The stress phase was continued for a total of 5 minutes. Heart rate was at the end of stress phase was 122 bpm and a blood pressure of 113/70 mmHg. The EKG at the peak infusion revealed normal sinus rhythm with no significant ST-T wave changes. Sestamibi was injected 20 seconds after the Lexiscan infusion. Blood pressure at the end of recovery phase was 106 72 mmHg with a heart rate of 98 bpm. Conclusion: 1. Normal EKG response to Lexiscan infusion 2. No Lexiscan induced chest pain or cardiac arrhythmia. 3. Normal blood pressure and heart rate response. 4. Sestamibi/sestamibi perfusion scan pending; see separate report. Electronically Signed On 07-05-2022 18:41:21 TELESALES REPRESENTATIVE by Jason Handy M.D. [id number]
--- NOTE | 2022-06-25 09:04 | PC.NURSE ---
Midline aborted. Able to access right basilic vein. Vein noted to be very small in diameter. Guidewire threaded without difficulty. Trocar introduced with some pain for patient. When guidewire removed, no blood return. Catheter inserted without difficulty and flushed well, but no blood return. Catheter and trocar removed. Pressure held until hemostasis obtained. Right arm and left arm assessed for viable veins. No further adequate vessels noted. Pt care nurse Colby and charge nurse Marjan notified of aborted midline. States they will pass info on to Dr. Lyons.
[2022-06-25] MEDS: FUROsemide 10 mg/mL SDV 2mL 20 MG IVP (10:20)
[2022-06-25] MEDS: pantoprazole DR 40 mg Tablet PO (10:20)
--- NOTE | 2022-06-25 11:42 | PM.PN ---
Subjective Subjective: This morning is much better On room air Blood pressure stable Heart rate in 60s She is off isolation Plan to discharge her tomorrow after home O2 eval Convert IV antibiotics to p.o. Midline could not be placed Vitals/I&O/Wt Last Vital Signs Temp 98.3 F 06/25/22 08:00 Pulse 67 06/25/22 08:00 Resp 17 06/25/22 08:00 BP 119/76 06/25/22 08:00 Pulse Ox 93 06/25/22 08:00 O2 Del Method 06/25/22 08:00 O2 Flow Rate 1 06/24/22 14:00 06/24/22 06/25/22 06/25/22 22:59 06:59 14:59 Intake Total 290 / 700 810 / 1510 50 / 50 Balance 290 / 700 810 / 1510 50 / 50 Weight last 48 hrs Weight 86.228 kg Weight 82.146 kg Weight 79.379 kg Physical Exam Narrative: Awake and alert S1, S2 Pleasant cooperative No active chest pain Euvolemic Currently on room air Abdomen soft Nonfocal neuro exam Pleasant and cooperative Family at the bedside Data 06/25/22 04:50 06/25/22 04:50 Micro: Microbiology 06/24/22 13:55 Gram Stain - Final Sputum - Expectorated Sputum Sputum Culture - Preliminary 06/23/22 23:14 Blood Culture - Preliminary Blood NEGATIVE TO DATE 06/23/22 23:16 Blood Culture - Preliminary Blood NEGATIVE TO DATE 06/24/22 02:00 MRSA Culture - Final Nose A&P Assessment and plan (1) Diarrhea: (2) Dizziness: (3) Hypoxia: (4) COVID-19 virus infection: (5) Pneumonia due to COVID-19 virus: (6) Atypical chest pain: Plan COVID-19 with superimposed bacterial pneumonia MRSA nares positive Switch to doxycycline Afebrile Discontinue isolation Discontinue Decadron Plan to discharge her tomorrow Atypical chest pain Requested stress test this morning Patient is stating her T wave inversions are chronic Nonsignificant delta troponin Discontinue IV antibiotics and IV fluids Sinus tachycardia improved, doing well with Xopenex Hypoxia related to COVID-19 and pneumonia: Improved currently doing well on room air Plan to discharge her tomorrow High D-dimer related to pneumonia, no signs of PE We will follow-up with echo and stress test report today Full code Regular diet DVT prophylaxis on board which is therapeutic Attestations Medical Necessity Statement*: Discharge tomorrow Coding Level of Care Code 05566 Diagnoses Diarrhea R19.7 Dizziness R42 Hypoxia R09.02 COVID-19 virus infection U07.1 Pneumonia due to COVID-19 virus U07.1; J12.82 Atypical chest pain R07.89
[2022-06-25] MEDS: regadenoson 0.4 Mg/5 ml Syringe IVP (12:09)
[2022-06-25] MEDS: ipratropium 0.5 mg/2.5 mL Neb INHALATION (13:17)
[2022-06-25] MEDS: cyanocobalamin 1,000 mcg Tablet 500 MCG PO (13:24)
[2022-06-25] MEDS: ascorbic acid 500 mg Tablet PO ×2 (13:25→18:20)
[2022-06-25] MEDS: ferrous gluconate 324 mg Tablet PO ×2 (13:25→19:21)
[2022-06-25] MEDS: zinc gluconate 50 mg Tablet PO (13:25)
--- NOTE | 2022-06-25 15:16 | NMCV_ITS ---
NM sourav perf SPECT r/s* [id number] Michelle Fuentes Age: 67 Gender: F : 1955 Exam Date: 06/25/2022 11:26 Ordering Phys: Leyla Lyons MD Technologist: BHARATHI Bhat Exam Location: [facility] Indications: CHEST PAIN STRESS TEST Please see separate [facility] for full findings IMAGE PROTOCOL Rest/Stress 1 Lexiscan Day Radiopharmaceutical Dose (mCi) Administration Site Administered by Rest: Tc-99m 11.0 IV BHARATHI Bhat Sestamibi Stress:Tc-99m 32.6 IV BHARATHI Fisher Sestamibi Rest: 25-Jun-2022 60 Discovery 630 Stress: 25-Jun-2022 30 Discovery 630 0.4mg Lexiscan. Images obtained in supine and prone position. SPECT RESULTS Technical Quality: Excellent Raw Data Analysis: Normal Image Corrections: No attenuation or motion correction applied Summed Stress Score: 5 Summed Rest Score: 3 Summed Difference Score: 2 PERFUSION FINDINGS There is homogenous radiotracer uptake throughout the myocardium. No evidence of ischemia FUNCTIONAL RESULTS (calculated via Gated SPECT) Stress Image LV EF (%): 79 Stress EDV (mL):39 TID: 0.92 Stress ESV (mL):8 FUNCTIONAL FINDINGS: There is normal left ventricular systolic function. IMPRESSIONS 1. Normal myocardial perfusion imaging with no evidence of ischemia 2. LV systolic function is normal Jason Handy MD (Electronically Signed) Final Date: 25 June 2022 17:25 S
[2022-06-25] MEDS: doxycycline 100 mg Tablet PO (18:20)
[2022-06-25] MEDS: ondansetron 2 mg/ML SDV 2 mL 4 MG IVP (18:21)
[2022-06-25] MEDS: sodium chloride 0.9% 1,000 ML 75 ML IV (21:38)
[2022-06-25] MEDS: meclizine 25 mg tablet PO (21:38)
[2022-06-26 00:34] VITALS: BP 110/70; PULSE 72; RESP 18; TEMP 36.7; O2SAT 91
[2022-06-26] MEDS: enoxaparin 80 mg/0.8 mL Syringe SUBCUT (02:59)
[2022-06-26 05:25] VITALS: BP 110/76; PULSE 72; RESP 19; TEMP 36.7; O2SAT 94
[2022-06-26 05:28] LABS: D Dimer 1.19 ug/mIFEU (0-0.59)
[2022-06-26] MEDS: remdesivir 100 MG in sodium chloride 0.9% (100 ml) 100 ML IV (05:30)
[2022-06-26 05:33] LABS: Blood Urea Nitrogen 22 mg/dL (8-23); C Reactive Protein 9.2 mg/L (0.0-4.9); Carbon Dioxide 21 mmol/L (22-29); Chloride 111 mmol/L (98-107); Glomerular Filtration Rate 71.3 mL/min (90-130); Glucose 93 mg/dL (65-115); Osmolality Calculated 295 mOsm/kg (285-295); Sodium 141 mmol/L (136-145)
[2022-06-26 05:40] LABS: Anion Gap 12.9 (5-19); Potassium 3.9 mmol/L (3.5-5.1)
[2022-06-26 06:00] VITALS: PULSE 60
--- NOTE | 2022-06-26 06:00 | XRR_ITS ---
PROCEDURE INFORMATION: Exam: XR Chest Exam date and time: 06/26/2022 6:54 AM Age: 67 years old Clinical indication: Condition or disease; Lung condition and disease; Other: Covid TECHNIQUE: Imaging protocol: Radiologic exam of the chest. Views: 1 view. COMPARISON: CR XR chest 1V portable [id number] 06/24/2022 6:10 AM FINDINGS: Lungs: Coarse reticular interstitial lung changes. There is hazy somewhat patchy right upper lobe airspace opacification new from comparison. Pleural spaces: Unremarkable. No pleural effusion. No pneumothorax. Heart/Mediastinum: Large hiatal hernia. Enlarged cardiac silhouette. Bones/joints: Unremarkable. XR/XR chest 1V portable [id number] IMPRESSION: Development hazy right upper lobe opacities are nonspecific. Pneumonia cannot be excluded.
[2022-06-26 08:00] VITALS: BP 119/73; PULSE 63; RESP 14; TEMP 36.4; O2SAT 96
[2022-06-26] MEDS: zinc gluconate 50 mg Tablet PO (09:19)
[2022-06-26] MEDS: meclizine 25 mg tablet PO (09:20)
[2022-06-26] MEDS: ascorbic acid 500 mg Tablet PO (09:20)
[2022-06-26] MEDS: doxycycline 100 mg Tablet PO (09:20)
[2022-06-26] MEDS: cyanocobalamin 1,000 mcg Tablet 500 MCG PO (09:20)
[2022-06-26] MEDS: ferrous gluconate 324 mg Tablet PO (09:20)
[2022-06-26] MEDS: pantoprazole DR 40 mg Tablet PO (09:21)
--- NOTE | 2022-06-26 09:39 | P.DS_ITS ---
Discharge Providers Date of Admission: 06/24/22 01: Date of Discharge: June 26, 2022 Attending Provider at Admission: Bakari Abdullahi MD Attending Provider at Discharge: Leyla Lyons MD Primary Care Provider: Matias Russell Diagnoses at Discharge Discharge Diagnosis (1) Diarrhea: Status: Acute (2) Dizziness: Status: Acute (3) Hypoxia: Status: Acute (4) COVID-19 virus infection: Status: Acute (5) Pneumonia due to COVID-19 virus: Status: Acute (6) Atypical chest pain: Status: Acute Reason for Visit Reason for Visit: SOB, Covid + Hospital Course Hospital Course 67-year female who had COVID-19 infection symptoms started roughly 6 to 7 days before her arrival in the ER presented with chief complaint of worsening of shortness of breath, she was requiring 2 L of oxygen, she was started on remdesivir and Decadron, we were able to wean off oxygen to room air, patient complained of chest pain, has no significant delta troponin noted however there was some T wave inversions, echo did not show wall motion abnormality, stress test unremarkable, nares MRSA positive, she was on vancomycin and Zosyn initially which was transitioned to p.o. doxycycline, she remained afebrile, D- dimer 1.19, CTA did not show any signs of PE, chest x-ray still showing superimposed bacterial infection signs she will need a few more days of antibiotics I will give her albuterol on as-needed basis. Patient does have chronic diarrhea takes Imodium, I have requested C. difficile panel before her discharge. Stool studies negative, C. difficile negative. Physical Exam Narrative: Awake and alert Euvolemic Abdomen soft Currently on room air Pleasant and cooperative GCS 15 Discharge Data Studies Completed and Pending Completed Studies During Hospitalization Category Date Time Status CT angio chest PE protcl [id number] Stat Cat Scan 06/23/22 20:04 Completed Sestamibi Stress Test Request Routine Exams 06/25/22 09:00 Draft XR chest 1V portable [id number] Q48H Exams 06/24/22 06:00 Completed XR chest 1V portable [id number] Q48H Exams 06/26/22 06:00 Completed NM sourav perf SPECT r/s* [id number] Routine Nuc Med 06/25/22 15:16 Completed CV. echo complete* [id number] Routine Ultrasound 06/24/22 19:01 Completed Pending at discharge Category Date Time Status Sestamibi Stress Test Request Routine Exams 06/24/22 15:16 Stop Req XR chest 1V portable [id number] Q48H Exams 06/28/22 06:00 Ordered Bacterial Antigen Stat Lab 06/23/22 23:00 Received Blood Culture Stat Lab 06/23/22 23:14 Results Clostridioides Difficile PCR Routine Lab 06/24/22 02:02 Results Enteric Bacterial Panel by PCR Routine Lab 06/24/22 02:02 Results Enteric Parasite Panel by PCR Routine Lab 06/24/22 02:02 Results Immunochemical Fecal OCB Routine Lab 06/24/22 02:02 Results Lactoferrin Routine Lab 06/24/22 02:02 Results Sputum Culture and Gram Stain Stat Lab 06/24/22 13:55 Results Radiology Impressions Chest CTA 06/23/22 20:04 IMPRESSION: 1. Negative for pulmonary embolus. 2. Scattered prominent subcentimeter short axis mediastinal lymph nodes, nonspecific. 3. 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 4. Scattered prominent subcentimeter short axis mediastinal lymph nodes, nonspecific. 5. Patchy bilateral right greater than left airspace infiltrates. Chest X-Ray 06/26/22 06:00 IMPRESSION: Development hazy right upper lobe opacities are nonspecific. Pneumonia cannot be excluded. Laboratory Results WBC 5.3 10^3/uL (4.0-10.0) 06/25/22 04:50 RBC 3.77 10^6/uL (4.1-5.3) L 06/25/22 04:50 Hgb 11.2 g/dL (11.5-15.3) L 06/25/22 04:50 Hct 34.4 % (37.0-47.0) L 06/25/22 04:50 MCV 91.2 fl (81-99) 06/25/22 04:50 MCH 29.7 pg (28.0-34.0) 06/25/22 04:50 MCHC 32.6 g/dL (30.0-36.0) 06/25/22 04:50 RDW 13.4 % (12.1-15.1) 06/25/22 04:50 Plt Count 159 10^3/cmm (130-400) 06/25/22 04:50 MPV 10.8 fL (7.4-10.4) H 06/25/22 04:50 Neut % (Auto) 77.5 % 06/25/22 04:50 Lymph % (Auto) 15.1 % 06/25/22 04:50 Thomas % (Auto) 7.0 % 06/25/22 04:50 Eos % (Auto) 0.0 % 06/25/22 04:50 Baso % (Auto) 0.0 % 06/25/22 04:50 Neut # (Auto) 4.10 10^3/uL (1.8-7.7) 06/25/22 04:50 Lymph # (Auto) 0.8 10^3/uL (0.8-4.8) 06/25/22 04:50 Thomas # (Auto) 0.4 10^3/uL (0.2-0.9) 06/25/22 04:50 Eos # (Auto) 0.0 10^3/uL (0.0-0.8) 06/25/22 04:50 Baso # (Auto) 0.0 10^3/uL (0.0-0.1) 06/25/22 04:50 Nucleated RBC % (auto) 0 % 06/25/22 04:50 Nucleated RBCs # 0.0 /100WBC 06/25/22 04:50 ESR 32 mm/hr (0-15) H 06/23/22 20:24 D-Dimer 1.19 ug/mIFEU (0-0.59) H 06/26/22 04:38 Sodium 141 mmol/L (136-145) 06/26/22 04:38 Potassium 3.9 mmol/L (3.5-5.1) 06/26/22 04:38 Chloride 111 mmol/L (98-107) H 06/26/22 04:38 Carbon Dioxide 21 mmol/L (22-29) L 06/26/22 04:38 Anion Gap 12.9 (5-19) 06/26/22 04:38 BUN 22 mg/dL (8-23) 06/26/22 04:38 Creatinine 0.8 mg/dL (0.5-0.9) 06/26/22 04:38 GFR Calculation 71.3 mL/min (90-130) L 06/26/22 04:38 Glucose 93 mg/dL (65-115) 06/26/22 04:38 Estimat Average Glucose 103 06/24/22 05:07 Hemoglobin A1c 5.2 % (4.0-6.0) 06/24/22 05:07 Calculated Osmolality 295 mOsm/kg (285-295) 06/26/22 04:38 Lactic Acid 1.8 mmol/L (0.5-2.2) 06/23/22 20:24 Calcium 8.0 mg/dL (8.5-10.5) L 06/26/22 04:38 Magnesium 1.9 mg/dL (1.7-2.3) 06/25/22 04:50 Iron 51 ug/dL (37-145) 06/23/22 20:24 TIBC 312 mcg/dl 06/23/22 20:24 % Saturation 16.3 % (20-50) L 06/23/22 20:24 Unsat Iron Binding 261 ug/dL (112-347) 06/23/22 20:24 Total Bilirubin 0.2 mg/dL (0.15-1.2) 06/24/22 05:07 AST 28 U/L (0-32) 06/24/22 05:07 ALT 13 U/L (0-33) 06/24/22 05:07 Alkaline Phosphatase 86 U/L (35-105) 06/24/22 05:07 Troponin T Gen 5 ng/L 7 ng/L (0-10) 06/23/22 20:24 Troponin T Baseline 15 ng/L (0-10) H 06/24/22 21:40 Troponin T 120 Minute 16.04 ng/L (0-10) H 06/24/22 23:19 Delta Troponin T 1.04 ABS# (0-10) 06/24/22 23:19 Troponin T Hi Sens 6Hr 12.52 ng/L (0-10) H 06/25/22 04:50 Troponin T Hi Sens 6Hr Delta -2.48 ng/L (0-12) L 06/25/22 04:50 C-Reactive Protein 9.2 mg/L (0.0-4.9) H 06/26/22 04:38 NT-Pro-B Natriuret Pep 79 pg/mL (0-125) 06/23/22 20:24 Total Protein 6.7 g/dL (6.6-8.7) 06/24/22 05:07 Albumin 3.2 g/dL (3.5-5.2) L 06/24/22 05:07 Globulin 3.5 g/dL (1.3-4.6) 06/24/22 05:07 Triglycerides 58 mg/dL (0-150) 06/24/22 05:07 Cholesterol 97 mg/dL (0-200) 06/24/22 05:07 LDL Cholesterol, Calc 39 mg/dL (50-129) L 06/24/22 05:07 Total VLDL Cholesterol 12 mg/dL (0-30) 06/24/22 05:07 HDL Cholesterol 46 mg/dL (60-100) L 06/24/22 05:07 Cholesterol/HDL Ratio 2.11 mg/dL (0.0-4.40) 06/24/22 05:07 Vitamin B12 301 pg/mL (232-1245) 06/23/22 20:24 Folate 10.2 ng/mL (4.8-37.3) 06/23/22 23:16 Procalcitonin 0.02 ng/mL (0-0.5) 06/23/22 20:24 TSH 2.71 uIU/mL (0.27-4.20) 06/23/22 20:24 Urine Color Yellow (Yellow) 06/24/22 05:00 Urine Appearance Clear (CLEAR) 06/24/22 05:00 Urine pH 5 (5-7) 06/24/22 05:00 Ur Specific [place] 1.005 (1.005-1.030) 06/24/22 05:00 Urine Protein Neg (Negative) 06/24/22 05:00 Urine Glucose (UA) Norm (Normal) 06/24/22 05:00 Urine Ketones Negative (Negative) 06/24/22 05:00 Urine Blood Neg (Negative) 06/24/22 05:00 Urine Nitrate Negative (Negative) 06/24/22 05:00 Urine Bilirubin Neg (Negative) 06/24/22 05:00 Urine Urobilinogen Norm mg/dL (Negative) 06/24/22 05:00 Ur Leukocyte Esterase Negative (Negative) 06/24/22 05:00 Vitals Last Vital Signs Temp 97.6 F 06/26/22 08:00 Pulse 63 02/23/23 08:00 Resp 14 06/26/22 08:00 BP 119/73 06/26/22 08:00 Pulse Ox 96 06/26/22 08:00 O2 Del Method 06/26/22 01:40 O2 Flow Rate 1 06/24/22 14:00 Discharge Plan Discharge Patient Disposition: Home Condition: Stable Prescriptions: New meclizine 25 mg Tablet 25 mg PO TID Qty: 30 0RF albuterol sulfate 90 mcg/actuation HFA aerosol inhaler 2 inh inhalation Q8H PRN (Reason: shortness of breath or wheezing) Qty: 6.7 1RF doxycycline monohydrate 100 mg Tablet 100 mg PO BID Qty: 10 0RF Continued simvastatin 20 mg tablet 20 mg PO BEDTIME metoprolol tartrate 50 mg tablet 50 mg PO DAILY omeprazole 20 mg Capsule,Delayed Release(Dr/Ec) 20 mg PO DAILY PRN (Reason: Gastric Reflux) Discharge Orders: Discharge Order (Routine); Ordered 06/26/22 Ordered By: Leyla Lyons Referrals: Matias Russell MD [Primary Care Provider] - 4-7 days Discharge Diet: Cardiac Discharge Activity: Increase activity as tolerated Patient Instructions: Opioid Safety Discharge Attestations Time Spent in Discharge Care*: less than 30 min Quality Metrics Clinical Quality Measures [ No reported AMI, CVA or VTE this stay] Coding Level of Care Code Acute Code for Chg Fwd Diagnoses Diarrhea R19.7 Dizziness R42 Hypoxia R09.02 COVID-19 virus infection U07.1 Pneumonia due to COVID-19 virus U07.1; J12.82 Atypical chest pain R07.89
[2022-06-26 09:49] VITALS: O2SAT 100; O2SAT 97
--- NOTE | 2022-06-26 10:37 | PC.SOCIAL ---
Home o2 eval Per RT note on home o2 eval patient did not qualify for oxygen.
[2022-06-26 11:43] VITALS: BP 119/73; PULSE 63; RESP 14; TEMP 36.4; O2SAT 96
== END 2022-06-26 11:00 | disposition home or self-care (01) | DRG 177 ==
LOC: ER 06-24 00:13 → MEDSURG 06-24 01:22
PROVIDERS: Admitting Provider Student in an Organized Health Care Education/Training Program; Emergency Provider Family Medicine; PCP Family Medicine; Visit Provider Internal Medicine
DX: U07.1 COVID-19 (principal); J12.82 Pneumonia due to coronavirus disease 2019; J15.9 Unspecified bacterial pneumonia; R09.02 Hypoxemia; E86.0 Dehydration; K52.9 Noninfective gastroenteritis and colitis, unspecified; R00.0 Tachycardia, unspecified; R07.89 Other chest pain; I45.10 Unspecified right bundle-branch block; Z22.322 Carrier or suspected carrier of Methicillin resistant Staphylococcus aureus
CPT/HCPCS: 36415; 36569; 71045; 71275; 78452; 80048; 80053; 80061; 81003; 82274; 82607; 82746; 83036; 83540; 83550; 83605; 83630; 83735; 83880; 84145; 84443; 84484; 85025; 85378; 85651; 86140; 86403; 87040; 87070; 87205; 87449; 87493; 87506; 87641; 93005; 93017; 93306; 94640; 94664; 94760; 96365; 96367; 96372; 96374; 96375; 97110; 97161; 99285; A9500; C1751; J0248; J1100; J1650; J1940; J1956; J2270; J2405; J2543; J2785; J3370; J3490; J7030; J7613; J7626; J7644; J8597; Q9967

== ENCOUNTER → 2023-11-16 08:56 | Outpatient (BNVA) | payer MEDICARE, SELFPAY | PROVIDERS: PCP Family Medicine; Visit Provider Nurse Practitioner Family | DX: L82.0 Inflamed seborrheic keratosis; L82.1 Other seborrheic keratosis; L91.8 Other hypertrophic disorders of the skin; L81.4 Other melanin hyperpigmentation; D22.5 Melanocytic nevi of trunk; Z85.828 Personal history of other malignant neoplasm of skin; D48.5 Neoplasm of uncertain behavior of skin | CPT/HCPCS: 11102; 17110; 99203 ==

== ENCOUNTER → 2023-11-25 13:41 | Outpatient (BNVA) | payer MEDICARE, SELFPAY | PROVIDERS: PCP Family Medicine; Visit Provider Dermatology | DX: D48.5 Neoplasm of uncertain behavior of skin (principal) | CPT/HCPCS: 11602; 13121 ==

== ENCOUNTER 2024-08-29 09:44 | Outpatient (CLI) | payer MEDICARE, SELFPAY ==
--- NOTE | 2024-08-29 09:55 | MM_ITS ---
WS: [id number] BILATERAL SCREENING DIGITAL TOMOSYNTHESIS MAMMOGRAM WITH CAD HISTORY: SCREENING COMPARISON: 12/12/2021, 04/30/2018 Bilateral CC and MLO views with tomosynthesis and synthetic mammography submitted. Computer aided detection analyzed. Breast composition: The breasts are heterogeneously dense, which may obscure small masses. No suspicious masses, microcalcifications or architectural distortion. Numerous asymmetries in each breast are stable over multiple prior years. No suspicious grouping of calcifications. MM/MM scr tomosynthesis [id number] IMPRESSION: BI-RADS: 2 - Benign FOLLOW UP: 1 Year Follow-up
== END 2024-08-29 09:45 | disposition home or self-care (01) ==
LOC: RAD 09:51
PROVIDERS: PCP Family Medicine; Visit Provider Family Medicine
DX: Z12.31 Encounter for screening mammogram for malignant neoplasm of breast (principal); R92.333 Mammographic heterogeneous density, bilateral breasts; N64.89 Other specified disorders of breast
CPT/HCPCS: 77063; 77067

== ENCOUNTER → 2024-10-20 11:19 | Outpatient (BNVA) | payer MEDICARE, SELFPAY | PROVIDERS: PCP Family Medicine; Visit Provider Nurse Practitioner Family | DX: L82.1 Other seborrheic keratosis (principal); L91.8 Other hypertrophic disorders of the skin; L81.4 Other melanin hyperpigmentation; D18.01 Hemangioma of skin and subcutaneous tissue; Z08 Encounter for follow-up examination after completed treatment for malignant neoplasm; Z85.828 Personal history of other malignant neoplasm of skin; Z87.2 Personal history of diseases of the skin and subcutaneous tissue; L82.0 Inflamed seborrheic keratosis; L29.89 Other pruritus; R20.9 Unspecified disturbances of skin sensation; R20.8 Other disturbances of skin sensation; L53.8 Other specified erythematous conditions | CPT/HCPCS: 17110; 99213 ==